=== PATIENT | male | born 2000 | race Two or more races ===

== ENCOUNTER 2022-05-31 16:24 | Emergency (ER) | payer MEDICAID, OTHER ==
[~2022-05-31] VITALS: Ht 167.6 cm; Wt 90.4 kg
[2022-05-31 17:53] VITALS: BP 131/71
[2022-05-31] MEDS ORDERED: IBUP800T27 PO (18:02)
[2022-05-31] MEDS ORDERED: IBUPROFEN 800 MG TAB PO ONE (18:15)
== END 2022-05-31 18:26 | disposition home or self-care (01) ==
LOC: ER 16:24
DX: S93.602A Unspecified sprain of left foot, initial encounter (principal); W01.0XXA Fall on same level from slipping, tripping and stumbling without subsequent striking against object, initial encounter; Y93.01 Activity, walking, marching and hiking; Y92.039 Unspecified place in apartment as the place of occurrence of the external cause; Y99.8 Other external cause status
CPT/HCPCS: 73630